=== PATIENT | male | born 1990 | race African-American/Black ===

== ENCOUNTER 2020-10-23 17:48 | Emergency (ER) | payer OTHER ==
[~2020-10-23] VITALS: Ht 170.2 cm; Wt 100.0 kg
[~2020-10-23 17:48] MED LIST: RISP1TAB48 PO; SERT-158 PO
[2020-10-23 19:31] VITALS: BP 127/82
[2020-10-23] MEDS ORDERED: CLOTRIMAZOLE 1% 15 GM CREAM TP ONE (19:45)
== END 2020-10-23 20:11 | disposition home or self-care (01) ==
LOC: EMS 17:51
DX: S91.201A Unspecified open wound of right great toe with damage to nail, initial encounter (principal); B35.3 Tinea pedis; F20.9 Schizophrenia, unspecified; F32.9 Major depressive disorder, single episode, unspecified; Z88.8 Allergy status to other drugs, medicaments and biological substances; X58.XXXA Exposure to other specified factors, initial encounter; Y93.9 Activity, unspecified; Y92.89 Other specified places as the place of occurrence of the external cause; Y99.8 Other external cause status
CPT/HCPCS: 99282; 99283

== ENCOUNTER 2020-10-27 02:10 | Emergency (ER) | payer OTHER ==
[~2020-10-27] VITALS: Ht 177.8 cm; Wt 75.0 kg
[2020-10-27] MEDS ORDERED: LEVAHFA IH (02:15)
[2020-10-27] MEDS ORDERED: ALBU8HFA IH (02:15)
[2020-10-27] MEDS ORDERED: LIDOCAINE 2%/EPI 1:200,000/PF 20 ML VIAL IARTIC ONE (04:30)
[2020-10-27] MEDS ORDERED: LIDOCAINE 2%/EPI 1:200,000/PF 10 ML VIAL IARTIC ONE (04:30)
[2020-10-27] MEDS ORDERED: KETOROLAC TROMETHAMINE 30 MG/ML VIAL IM ONE (04:30)
[2020-10-27 05:57] VITALS: BP 126/78
== END 2020-10-27 05:54 | disposition home or self-care (01) ==
LOC: EMS 02:11
DX: S62.327A Displaced fracture of shaft of fifth metacarpal bone, left hand, initial encounter for closed fracture (principal); J45.909 Unspecified asthma, uncomplicated; F32.9 Major depressive disorder, single episode, unspecified; F20.9 Schizophrenia, unspecified; F17.210 Nicotine dependence, cigarettes, uncomplicated; F12.90 Cannabis use, unspecified, uncomplicated; Z88.8 Allergy status to other drugs, medicaments and biological substances; W20.8XXA Other cause of strike by thrown, projected or falling object, initial encounter; Y93.89 Activity, other specified; Y92.89 Other specified places as the place of occurrence of the external cause; Y99.8 Other external cause status
CPT/HCPCS: 29125; 73130; 96372; 99283; J1885

== ENCOUNTER 2020-11-20 10:52 | Emergency (ER) | payer OTHER ==
[~2020-11-20] VITALS: Ht 170.2 cm; Wt 59.1 kg
[~2020-11-20 10:52] MED LIST changes: +ALBU8HFA IH; +LEVAHFA IH
[2020-11-20 13:31] VITALS: BP 135/81
== END 2020-11-20 13:32 | disposition home or self-care (01) ==
LOC: EMS 10:52
DX: S62.307G Unspecified fracture of fifth metacarpal bone, left hand, subsequent encounter for fracture with delayed healing (principal); F20.9 Schizophrenia, unspecified; M79.642 Pain in left hand; J45.909 Unspecified asthma, uncomplicated; F41.9 Anxiety disorder, unspecified; F32.9 Major depressive disorder, single episode, unspecified; F17.210 Nicotine dependence, cigarettes, uncomplicated; F12.90 Cannabis use, unspecified, uncomplicated; Z88.8 Allergy status to other drugs, medicaments and biological substances; X58.XXXD Exposure to other specified factors, subsequent encounter
CPT/HCPCS: 99283

== ENCOUNTER 2021-02-24 20:48 | Emergency (ER) | payer OTHER ==
[~2021-02-24] VITALS: Ht 177.8 cm; Wt 75.0 kg
[2021-02-24] MEDS ORDERED: PERTUSS(ACELL),DIPH,TET VAC/PF 0.5 ML SYRINGE IM. ONE (21:45)
[2021-02-24] MEDS ORDERED: BACITRACIN 0.9 GM PACKET OINTMENT TP ONE (21:45)
[2021-02-24 22:40] VITALS: BP 132/78
== END 2021-02-24 22:41 | disposition home or self-care (01) ==
LOC: EMS 20:54
DX: S51.821A Laceration with foreign body of right forearm, initial encounter (principal); X58.XXXA Exposure to other specified factors, initial encounter; Y93.89 Activity, other specified; Y92.89 Other specified places as the place of occurrence of the external cause; Y99.8 Other external cause status
CPT/HCPCS: 90471; 90715; 99283

== ENCOUNTER 2021-03-08 09:53 | Emergency (ER) | payer OTHER ==
[~2021-03-08] VITALS: Ht 180.3 cm; Wt 77.3 kg
[2021-03-08] MEDS: IBUPROFEN 600 MG TABLET PO ONE (10:35)
[2021-03-08 12:21] VITALS: BP 111/70
== END 2021-03-08 12:22 | disposition home or self-care (01) ==
LOC: EMS 09:55
DX: B34.9 Viral infection, unspecified (principal); F20.9 Schizophrenia, unspecified; F17.210 Nicotine dependence, cigarettes, uncomplicated; F15.90 Other stimulant use, unspecified, uncomplicated; F12.90 Cannabis use, unspecified, uncomplicated
CPT/HCPCS: 71045; 93005; 99284

== ENCOUNTER 2021-04-13 00:04 | Emergency (ER) | payer OTHER ==
[~2021-04-13] VITALS: Ht 180.3 cm; Wt 77.3 kg
[2021-04-13 00:08] VITALS: BP 149/84
[2021-04-13] MEDS ORDERED: PredniSONE 20 MG TABLET PO ONE (00:30)
[2021-04-13] MEDS ORDERED: HYDROCODONE/ACETAMINOPHEN 5-325 MG TABLET PO ONE (00:30)
[2021-04-13] MEDS ORDERED: ValACYclovir HCL 500 MG TABLET PO ONE (00:30)
== END 2021-04-13 01:10 | disposition home or self-care (01) ==
LOC: EMS 00:06
DX: B02.9 Zoster without complications (principal); J45.909 Unspecified asthma, uncomplicated; F41.9 Anxiety disorder, unspecified; F32.9 Major depressive disorder, single episode, unspecified; F20.9 Schizophrenia, unspecified; F12.90 Cannabis use, unspecified, uncomplicated; F17.210 Nicotine dependence, cigarettes, uncomplicated; Z88.8 Allergy status to other drugs, medicaments and biological substances
CPT/HCPCS: 99284; J7512